=== PATIENT | female | born 1995 | race African-American/Black ===

== ENCOUNTER 2021-01-23 19:56 | Inpatient (IN) | payer BC ==
[~2021-01-23] VITALS: Ht 160 cm; Wt 103.9 kg
[2021-01-23 21:06] LABS: BASOPHILS % 0.7 % (0.0-2.0); HEMATOCRIT. 41.7 % (36.0-48.0); LYMPHOCYTES % 23.2 % (20.0-50.0); MEAN CORPUSCULAR HEMOGLOBIN 30.4 pg (28.0-32.0); MEAN CORPUSCULAR VOLUME 90.6 fL (81.0-99.0); MEAN PLATELET VOLUME 6.6 fl (7.4-10.4); NEUTROPHILS % 66.1 % (40.0-76.0); PLATELET 441 x1000/uL (130-400); RED CELL DISTRIBUTION WIDTH 12.8 % (11.6-14.6)
[2021-01-23 21:11] LABS: CHLORIDE 107 mEq/L (98-107)
[2021-01-23 21:15] LABS: ETHANOL BLOOD < 10 mg/dL
[2021-01-23] MEDS ORDERED: SODIUM CHLORIDE 0.9% 1,000 ML IV ONE (21:30)
[2021-01-23 21:39] LABS: HCG SCREEN NEGATIVE
[2021-01-23] MEDS ORDERED: ASPIRIN 81MG TABLET PO ONE (21:45)
[2021-01-23] MEDS ORDERED: ONDANSETRON HCL 4MG/2ML INJ IV STA (22:24)
[2021-01-23] MEDS ORDERED: MORPHINE SULFATE 4 MG/ML CPJ (NOT FOR IM USE) IV STA (22:24)
[2021-01-23 22:25] LABS: CLARITY URINE CLEAR (CLEAR); COLOR URINE YELLOW (YELLOW); KETONES URINE NEGATIVE (NEGATIVE); LEUKOCYTE ESTERASE URINE TRACE (NEGATIVE); NITRITE URINE NEGATIVE (NEGATIVE); OCCULT BLOOD URINE 3+ (NEGATIVE); PH URINE 6.5 (4.5-8.0); PROTEIN URINE 1+ (NEGATIVE); SPECIFIC GRAVITY URINE 1.038 (1.005-1.030); UROBILINOGEN URINE 0.2 E.U./dL (0.2-1.0)
[2021-01-23 22:36] LABS: *AMPHETAMINES SCREEN URINE NEGATIVE (NEGATIVE); *BARBITURATES SCREEN URINE NEGATIVE (NEGATIVE); *BENZODIAZEPINES SCREEN URINE NEGATIVE (NEGATIVE); *COCAINE SCREEN URINE NEGATIVE (NEGATIVE)
[2021-01-23 22:37] LABS: CANNABINOID URINE SCREEN NEGATIVE (NEGATIVE); METHADONE URINE SCREEN NEGATIVE (NEGATIVE); OPIATES URINE SCREEN NEGATIVE (NEGATIVE); PHENCYCLIDINE URINE SCREEN NEGATIVE (NEGATIVE)
[2021-01-23] MEDS ORDERED: IOHEXOL-350 100 ML BOTTLE ONE (23:13)
[2021-01-24] MEDS ORDERED: ENOXAPARIN 40MG/0.4ML SYR SUBCUT SCH (00:15)
[2021-01-24] MEDS ORDERED: ACETAMINOPHEN 325MG TABLET PO PRN ×2 (00:15)
[2021-01-24] MEDS ORDERED: GUAIFENESIN 200MG/10ML SUGAR FREE UDC PO PRN (00:15)
[2021-01-24] MEDS ORDERED: ONDANSETRON HCL 4MG/2ML INJ IV PRN (00:15)
[2021-01-24] MEDS ORDERED: MAGNESIUM/ALUMINUM HYDROXIDE/SIMETHICONE 30ML UDC PO PRN (00:15)
[2021-01-24] MEDS ORDERED: CLONIDINE 0.1MG TABLET PO PRN (00:15)
[2021-01-24] MEDS: HYDROCODONE/ACETAMINOPHEN 5/325MG TABLET PO PRN ×2 (04:25→10:48)
[2021-01-24] MEDS ORDERED: NALOXONE HCL 0.4 MG/ML 1ML VIAL IV PRN (04:30)
[2021-01-24 04:50] LABS: CHLORIDE 109 mEq/L (98-107)
[2021-01-24 04:55] LABS: PHOSPHORUS 2.8 mg/dL (2.5-4.9)
[2021-01-24 04:58] LABS: BASOPHILS % 0.4 % (0.0-2.0); EOSINOPHILS % 2.2 % (0.0-5.0); HEMATOCRIT. 38.5 % (36.0-48.0); HEMOGLOBIN. 13.4 g/dL (12.0-16.0); LYMPHOCYTES % 33.4 % (20.0-50.0); MEAN CORPUSCULAR HEMOGLOBIN 31.4 pg (28.0-32.0); MEAN CORPUSCULAR VOLUME 90.3 fL (81.0-99.0); MEAN PLATELET VOLUME 6.9 fl (7.4-10.4); MONOCYTES % 7.9 % (2.0-8.0); NEUTROPHILS % 56.1 % (40.0-76.0); PLATELET 436 x1000/uL (130-400); RED BLOOD CELL COUNT 4.26 mill/uL (4.2-5.4); RED CELL DISTRIBUTION WIDTH 12.7 % (11.6-14.6)
[2021-01-24 10:49] VITALS: BP 138/99
[2021-01-24 10:53] VITALS: BP 138/99
[2021-01-24] MEDS ORDERED: HYDRALAZINE 20MG/ML VIAL IV NR (12:09)
[2021-01-24] MEDS ORDERED: MORPHINE SULFATE 2 MG/ML CPJ (NOT FOR IM USE) IV NR (12:45)
[2021-01-24] MEDS ORDERED: DEXAMETHASONE 10 MG/ML VIAL IV NR (14:30)
[2021-01-24] MEDS ORDERED: KETOROLAC 15MG/ML VIAL IV NR (14:30)
[2021-01-24 16:00] VITALS: BP 133/85
[2021-01-24] MEDS: METHYLPREDNISOLONE 4MG TABLET PO SCH ×2 (17:30→20:39)
[2021-01-24] MEDS ORDERED: AMLODIPINE 10MG TABLET PO SCH (18:30)
[2021-01-24] MEDS ORDERED: VALA500T PO (18:35)
[2021-01-24] MEDS ORDERED: AMLO10TA80 PO (18:35)
[2021-01-24] MEDS ORDERED: MED4 MT (18:35)
[2021-01-24] MEDS ORDERED: VALACYCLOVIR HCL 500MG TABLET PO SCH (20:00)
[2021-01-24 21:00] VITALS: BP 141/77
[2021-01-24] MEDS ORDERED: ERYTHROMYCIN BASE 0.5% OPHTH OINT 3.5GM LEFTEYE SCH (21:00)
[2021-01-24] MEDS ORDERED: FAMOTIDINE 20MG TABLET PO SCH (21:00)
[2021-01-25] MEDS ORDERED: METHYLPREDNISOLONE 4MG TABLET PO SCH ×4 (06:40→21:00)
[2021-01-26] MEDS ORDERED: METHYLPREDNISOLONE 4MG TABLET PO SCH (21:00)
== END 2021-01-24 21:50 | disposition home or self-care (01) | DRG 74 ==
LOC: ER 19:56 → 7EST 01-24 00:02 → SUPCPDRO 01-24 00:05 → EDBEDREQ 01-24 00:07 → EDBEDREQSVC 01-24 00:07 → EDBEDREQTM 01-24 00:07 → EDBEDREQDT 01-24 00:07 → ENRESERV 01-24 07:23
PROVIDERS: ADMIT Internal Medicine; ATTEND Internal Medicine
DX: G51.0 Bell's palsy (principal); Z68.41 Body mass index [BMI] 40.0-44.9, adult; R47.1 Dysarthria and anarthria; R53.1 Weakness; E66.01 Morbid (severe) obesity due to excess calories
CPT/HCPCS: 36415; 70496; 70498; 70544; 70553; 71045; 80048; 80053; 80305; 80320; 81003; 82962; 83735; 84100; 84484; 84703; 85025; 93005; 99291; J0360; J1100; J1885; J2270; J2405; J7030; J7509; Q9967; G0480